=== PATIENT | male | born 1990 | race Caucasian/White ===

== ENCOUNTER 2025-03-05 10:04 | Inpatient (IN) | payer SELFPAY ==
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
--- OUTSIDE RECORDS SUMMARY | 2020-12-20 03:21 | XMS_ITS | Continuity of Care Document ---
Author Organization [facility] Address [address] [place] [address] Phone Care Team Providers Care Automatic Screwmaker Name Role Phone Unavailable Unavailable Unavailable Allergies, Adverse Reactions, Alerts Substance Reaction Status Criticality No Known Allergies Active No Inform ation Medications Medication Instructions Dosage Effective Dates (start - stop) Status Comments NAPROXEN 500 MG TABLET TAKE 1 TABLET BY ORAL ROUTE 2 TIMES EVERY DAY WITH FOOD, SAFE TO TAKE WITH TYLENOL 500 MG - Active escitalopram 10 mg tablet take 1 tablet by oral route every day 10 MG - Active NAPROXEN 500 MG TABLET TAKE 1 TABLET BY ORAL ROUTE 2 TIMES EVERY DAY WITH FOOD, SAFE TO TAKE WITH TYLENOL 500 MG - No Longer Active Procedures Procedure Date Offic/outpt E&m Estab Mod-hi 2 21 Offic/outpt E&m Estab Low-mod 9 OFFICE/OUTPATIENT VISIT, [facility] Advance Directives Directive Yes / No Effective Date File Name No Information Encounters Encounter Description Practice Location Reason(s) For Visit Diagnoses Date Provider Providers Copied on Encounter [facility], [address] [place] [address], [id number], [place] tel:[phone] [facility] No Information No Information [facility], [address] [place] [address], [id number], [place] tel:[phone] [facility] No Information No Information Offic/outpt E&m Estab Mod-hi [facility], [address] [place] [address], [id number], tel:[phone] [facility] Establish Care (chief complaint) Moderate episode of recurrent major depressive disorderChronic midline low back pain without sciaticaOther chronic painAlcohol abuse 1 No Information Offic/outpt E&m Estab Low-mod [facility], [address] [place] [address], [id number], tel:[phone] [facility] Immediate Care PPD (chief complaint) Encounter for screening for respiratory tuberculosis 9 Will TISHA Villanueva. [address] [place], [place], [id number], [place]. tel:[phone] OFFICE/OUTPA TIENT VISIT, [facility], [address] [place] [address], [id number], tel:[phone] [facility] Immediate Care PPD (chief complaint) Encounter for screening for respiratory tuberculosis 9 Will TISHA Villanueva. [address] [place], [place], [id number], [place]. tel:[phone] Family History Family Member Type Diagnosis Age At Onset No Information Payers Payer name Insurance type Covered republican ID Rodriguez duncan(s) [facility] [id number] [address] [id number] Social History Type Description Quantity Date Captured Comments Sex Male Smoking Status No Information Chief Complaint And Reason For Visit No Information Reason For Referral Reason For Referral No Information Plan Of Treatment Date Type Action Status Referral Ordered: Internal Integrated Behavioral Health (related to Moderate episode of recurrent major depressive disorder) ordered Referral Ordered: Internal Suboxone MAT (related to Alcohol abuse) ordered Referral Ordered: Rad Exam Spine Lumbar Complete ordered Referral Ordered: Referrals: Internal Suboxone MAT. Evaluate and treat ordered Referral Ordered: Referrals: Internal Integrated Behavioral Health. Evaluate and treat ordered Future Order: Lab Order LIPID ME OFILE ([id number]), Sent on: Sent Future Order: Lab Order CBC (INC LUDES DIFF/PLT) ([id number]), Sent on: Sent Future Order: Lab Order COMPREHE NSIVE METABOLIC PANEL ([id number]), Sent on: Sent Future Order: Lab Order TSH W/RE FLEX TO FREE T4 ([id number]), Sent on: Sent History Of Present Illness Encounter Date Complaint History Of Prese nt Illness Establish Care CC- back pain, d epression and anxiety, drinking abuse- sometimes has cravingMedical History- depression, anxietyMeds- deniesAllergies- nkdaSurgical- deniesFamily- cancer cousin- sickel cell anemiaSocial- tob- rarely, etoh- former, since October, recreational drug use- thc formerWork- driverExercise- used to go to the gymDiet- no pork PPD Pt presents to [facility] today to have PPD read. No prior history of TB and no known contacts. No SOB, fevers, chills, weight loss or gain, night sweats, hemoptysis. Feeling well. PPD Pt presents to [facility] to have PPD placed for work/school. No prior history of TB and no known contacts. No SOB, fevers, chills, weight loss or gain, night sweats, hemoptysis. Feeling well. Functional Status Date Functional Assessmen t No Information Instructions Date Instruction Additional Infor lizabeth -PPD reading was NEG ATIVE today-handout given to patient to give to employer/school if needed Related to Encounter for screening for respiratory tuberculosis -PPD placed in clini c today-return to clinic somewhere between 48-72 hours to have read Related to Encounter for screening for respiratory tuberculosis Assessments Type Assessment Date No Information Patient Care Teams Name Effective Dates (start - stop) Status Members No Information
[2025-03-05 10:10] VITALS: BP 148/96; PULSE 71; TEMP 37; O2SAT 100
[2025-03-05 10:13] VITALS: BMI 23.2
--- OUTSIDE RECORDS SUMMARY | 2025-03-05 10:22 | XMS_ITS | Clinical Summary ---
Author Organization [facility] Address [address] [place]: [place] [address] Care Team Providers Care Community Relations Representative Name Role Phone Janki García MD Primary Care Provider [phone] Allergies No known active allergies Medications acetaminophen (TYLENOL) 500 mg tablet Take 1,000 mg by mouth every 6 hours as needed for Pain. 4 Active cyclobenzaprine (FLEXERIL) 10 mg tabletIndication s:Chronic bilateral low back pain with bilateral sciatica Take 1 Tablet (10 mg) by mouth 3 times daily as needed for Spasm. 30 Tablet 3 5 Active diclofenac sodium (VOLTAREN) 75 mg Tablet, Delayed Release (E.C.)Indication s:Chronic bilateral low back pain with bilateral sciatica Take 1 Tablet (75 mg) by mouth 2 times daily. 60 Tablet 1 5 Active omeprazole (PriLOSEC) 20 mg Capsule, Delayed Release(E.C.)Ind ications:Gastroe sophageal reflux disease without esophagitis Take 1 Capsule (20 mg) by mouth daily. 90 Capsule 1 5 Active ondansetron (ZOFRAN ODT) 4 mg Tablet, Rapid DissolveIndicati ons:Nausea and vomiting, unspecified vomiting type Take 1 Tablet (4 mg) by mouth every 8 hours as needed for Nausea/Emesis . Dissolve tablet on top of tongue, then swallow with saliva. 9 Tablet 5 Active hydrOXYzine HCL (ATARAX) 25 mg tabletIndication s:Insomnia, unspecified type Take 1 Tablet (25 mg) by mouth daily at bedtime. 30 Tablet 1 5 Active Active Problems Problem Noted Date Diagnosed Date Gastroesophageal reflux disease without esophagi tis 06/23/2024 Skin mass 06/23/2024 Pancreatitis Insomnia Asthma Anxiety state Chronic back pain Encounters Date Type Department Care Team Description 02/13/2025 External Device Data [facility] Provider, Abstract 01/17/2025 External Device Data [facility] Provider, Abstract 01/16/2025 External Device Data [facility] Provider, Abstract 01/02/2025 External Device Data [facility] Provider, Abstract 12/13/2024 External Device Data [facility] Provider, Abstract 12/13/2024 External Device Data [facility] Provider, Abstract from Last 3 Months Immunizations Immunization Administration Dates Next Due (ADACEL/BOOSTRIX)(10 YR UP) TDAP VACCINE, 0.5ML, IM 09/26/2021,09/26/2021,11/21/2020,2012 Family History Medical History Relation Name Comments Brain Aneurysm Maternal Grandfather Brain Aneurysm Maternal Grandmother Hypertension Mother Breast Cancer Other Aunt Relation Name Status Comments Maternal Grandfather Maternal Grandmother Mother Other Aunt Social History Tobacco Use Types Packs/Day Years Used Date Smoking Tobacco: Former Cigarettes Smokeless Tobacco: Never Tobacco Cessation:Counseling Given: Not Answered Alcohol Use Standard Drinks/Week Comments Yes 0 (1 standard drink = 0.6 oz pur e alcohol) Socially Sex and Gender Information Value Date Recorded Sex Assigned at Not on file Legal Sex Male 10:42 PM PERIODICALS LIBRARY ASSISTANT Gender Identity Not on file Sexual Orientation Not on file Last Filed Vital Signs Vital Sign Reading Time Taken Comments Blood Pressure 130/72 06/23/2024 11:43 AM PERIODICALS LIBRARY ASSISTANT Pulse 91 06/23/2024 11:43 AM PERIODICALS LIBRARY ASSISTANT Temperature 36.1 C (96.9 F) 06/23/2024 11:43 AM PERIODICALS LIBRARY ASSISTANT Respiratory Rate 12 09/26/2024 10:11 AM CDT Oxygen Saturation 98% 06/23/2024 11:43 AM PERIODICALS LIBRARY ASSISTANT Inhaled Oxygen Concentration - - Weight 64.4 kg (142 lb) 09/26/2024 10:11 AM CDT Height 170.2 cm (5' 7 ) 09/26/2024 10:11 AM CDT Body Mass Index 22.24 09/26/2024 10:11 AM CDT Plan of Treatment Health Maintenance Due Date Last Done Comments HEPATITIS B VACCINES (1 of 3 - 19+ 3-dose series) 2009 HPV VACCINES (1 - 3-dose SCD M series) 2017 INFLUENZA VACCINE (#1) 2024 DTAP/TDAP/TD VACCINES (5 - T d or Tdap) 09/27/2031 09/26/2021, 09/26/2021, 11/21/2020, Additional history exists Abdominal Aortic Aneurysm (A AA) Screening Completed 11/10/2020, 11/09/2020 Care Teams Community Relations Representative Relationship Specialty Start Date End Date Janki García MD [address] [place] [id number] PCP - General Family Practice 06/23/24
--- OUTSIDE RECORDS SUMMARY | 2025-03-05 10:22 | XMS_ITS | Clinical Summary ---
Author Organization [facility] Address [address] [place] [address] Care Team Providers Care Door Cutter Name Role Phone Unavailable Primary Care Provider Unavailabl e Social History Tobacco Use Types Packs/Day Years Used Date Smoking Tobacco: Never Assessed Sex and Gender Information Value Date Recorded Sex Assigned at Not on file Legal Sex Male 11:36 AM CDT Gender Identity Not on file Sexual Orientation Not on file Plan of Treatment Health Maintenance Due Date Last Done Comments DTAP/TDAP/TD VACCINES (1 - Tdap) 2009 HEPATITIS B VACCINES (1 of 3 - 19+ 3-dose series) 11/29 HPV VACCINES (1 - 3-dose SCDM series) 2017 INFLUENZA VACCINE (#1) 2024
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
--- NOTE | 2025-03-05 12:17 | PC.NURSE ---
Ces[facility]e called Pt.'s Pharmacy in [facility] to verify pt. medications. The pharmacist stated these meds prescribed was on his DC from [facility] and was only prescribed for 30 days and they was last filled the end of October. # is [phone]
[2025-03-05 13:53] VITALS: BP 136/95; PULSE 92; RESP 15; TEMP 37.2; O2SAT 98
--- NOTE | 2025-03-05 15:35 | PC.NURSE ---
Pt. could not get his ring off that is why he is still wearing it.
--- NOTE | 2025-03-05 18:04 | PC.NURSE ---
Dr. Cordero gave the verbal order to restart the following medications. Gabapentin 200mg PO TID Amlodipine 5mg PO QD Trazodone 150mg PO @ HS Seroquel 50mg PO BID
[2025-03-05 20:12] VITALS: BP 139/86; PULSE 93; RESP 18; TEMP 37; O2SAT 99
[2025-03-06 06:00] VITALS: BP 108/67; PULSE 75; RESP 17; TEMP 36.5; O2SAT 98
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
[2025-03-06 10:08] LABS: PCP Screen Urine Negative (Negative)
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
[2025-03-06 12:20] VITALS: BP 108/67; PULSE 75; RESP 17; TEMP 36.5; O2SAT 98
[2025-03-06 13:55] VITALS: BP 129/79; PULSE 110; RESP 18; TEMP 36.9; O2SAT 96
== END 2025-03-06 14:14 | disposition home or self-care (01) | DRG 885 ==
PROVIDERS: Admitting Provider Psychiatry & Neurology Psychiatry; Visit Provider Psychiatry & Neurology Psychiatry
DX: F33.1 Major depressive disorder, recurrent, moderate (principal); R45.851 Suicidal ideations; Z91.128 Patient's intentional underdosing of medication regimen for other reason; F41.9 Anxiety disorder, unspecified; F90.2 Attention-deficit hyperactivity disorder, combined type
CPT/HCPCS: 80306; 97150; 97165; J9999